=== PATIENT | female | born 1980 | race Native Hawaiian/Other Pacific Islander ===

== ENCOUNTER 2020-07-20 11:58 | Outpatient (CLI) | payer OTHER ==
[~2020-07-20 11:58] MED LIST: ADDERALL15 MG PO; CELEBREX200 MG PO; CLON0.1T16 PO; DULO30CA PO; FOLI1TAB26 PO; METHO2.5 PO; NEURONTIN 100M100 MG PO; PARO20TA3 PO; PROMETHAZINE12.5 M2 PO
== END 2020-07-20 23:16 | disposition home or self-care (01) ==
LOC: US 11:58
DX: R10.9 Unspecified abdominal pain (principal)

== ENCOUNTER 2020-07-26 08:10 | Outpatient (CLI) | payer OTHER | END 2020-07-26 21:30 | disposition home or self-care (01) | LOC: NM 08:10 | DX: R10.9 Unspecified abdominal pain (principal) | CPT/HCPCS: A9537 ==

== ENCOUNTER 2020-11-28 11:04 | Outpatient (CLI) | payer OTHER ==
[2020-11-28 13:28] LABS: PLATELET COUNT 190 K/uL (152-353)
[2020-11-28 14:10] LABS: POTASSIUM 3.7 mmol/L (3.6-5.2); SODIUM 138 mmol/L (136-145)
== END 2020-11-28 19:19 | disposition home or self-care (01) ==
LOC: LABW 11:04
PROVIDERS: ATTEND Family Medicine
DX: R00.2 Palpitations (principal); R06.09 Other forms of dyspnea
CPT/HCPCS: 36415; 80053; 80061; 82306; 82550; 82607; 82670; 83036; 84403; 84436; 84443; 84480; 84484; 85027; 85379; 85385; 86140; 86376; 93225

== ENCOUNTER 2020-11-29 12:10 | Outpatient (CLI) | payer OTHER | END 2020-11-29 19:56 | disposition home or self-care (01) | LOC: RESP 12:10 | PROVIDERS: ATTEND Family Medicine | DX: R00.2 Palpitations (principal); R06.00 Dyspnea, unspecified ==

== ENCOUNTER 2020-12-11 11:35 | Observation (INO) | payer OTHER ==
[~2020-12-11] VITALS: Ht 154.9 cm; Wt 54.9 kg
[2020-12-11 12:12] LABS: PLATELET COUNT 212 K/uL (152-353)
[2020-12-11 12:30] LABS: POTASSIUM 3.8 mmol/L (3.6-5.2)
[2020-12-11 13:39] VITALS: BP 113/61; TEMP 98.5; Ht 154.9 cm; Wt 54.9 kg
[2020-12-11] MEDS ORDERED: METO50TA27 PO (13:58)
[2020-12-11] MEDS ORDERED: LIPITOR10 MG PO (13:59)
[2020-12-11] MEDS ORDERED: ADDERALL30 MG PO (14:54)
[2020-12-11 16:00] VITALS: BP 93/57; TEMP 98.5
[2020-12-11 20:06] VITALS: BP 112/69; TEMP 98.5
[2020-12-11 23:58] VITALS: BP 93/49; TEMP 97.6
[2020-12-12 04:12] VITALS: BP 90/57; TEMP 98.2
[2020-12-12 05:00] LABS: PLATELET COUNT 167 K/uL (152-353)
[2020-12-12 08:00] VITALS: BP 115/50; TEMP 98.5
[2020-12-12 12:00] VITALS: BP 102/50; TEMP 98.5
[2020-12-12 16:00] VITALS: BP 98/69; TEMP 98.5
[2020-12-12 19:57] VITALS: BP 111/76; TEMP 98.2
[2020-12-12 23:52] VITALS: BP 90/55; TEMP 98.2
[2020-12-13] VITALS (11 sets, daily range): BP systolic 74–132; BP diastolic 37–83; TEMP 97.5–98.8
[2020-12-13 05:19] LABS: PLATELET COUNT 159 K/uL (152-353)
[2020-12-13 05:36] LABS: POTASSIUM 3.7 mmol/L (3.6-5.2)
== END 2020-12-13 18:40 | disposition home or self-care (01) ==
LOC: MED/SURG 11:35
PROVIDERS: ADMIT Family Medicine; ATTEND Family Medicine
PROC: 0FT44ZZ Resection of Gallbladder, Percutaneous Endoscopic Approach (ICD-10-PCS; principal; 2020-12-13)
DX: K81.1 Chronic cholecystitis (principal); E46 Unspecified protein-calorie malnutrition; F17.200 Nicotine dependence, unspecified, uncomplicated; R10.9 Unspecified abdominal pain
CPT/HCPCS: 36415; 80053; 81000; 82150; 83605; 83690; 83735; 84100; 85027; 86140; 87040; 87635; 96365; 96366; 96367; 96375; 99220; G0378; G0379; J0132; J0171; J1100; J1170; J1885; J2175; J2405; J2543; J2550; J2704; J2710; J3490; J7120; U0003

== ENCOUNTER 2021-03-01 13:34 | Outpatient (CLI) | payer OTHER ==
[~2021-03-01 13:34] MED LIST changes: +ADDERALL30 MG PO; +LIPITOR10 MG PO; +METO50TA27 PO
== END 2021-03-01 22:50 | disposition home or self-care (01) ==
LOC: MAMMO 13:34
PROVIDERS: ATTEND Family Medicine
DX: N64.52 Nipple discharge (principal); N64.4 Mastodynia
CPT/HCPCS: G0279

== ENCOUNTER 2021-07-01 14:52 | Emergency (ER) | payer OTHER ==
[~2021-07-01] VITALS: Ht 154.9 cm; Wt 54.9 kg
[2021-07-01 15:00] VITALS: TEMP 98.8
[2021-07-01 15:43] VITALS: BP 103/73
== END 2021-07-01 15:45 | disposition home or self-care (01) ==
LOC: ED 14:52
DX: S93.491A Sprain of other ligament of right ankle, initial encounter (principal); W20.8XXA Other cause of strike by thrown, projected or falling object, initial encounter; Y92.239 Unspecified place in hospital as the place of occurrence of the external cause
CPT/HCPCS: 99282

== ENCOUNTER 2021-11-13 11:57 | Observation (INO) | payer OTHER ==
[~2021-11-13] VITALS: Ht 154.9 cm; Wt 55.3 kg
[2021-11-13 12:10] VITALS: BP 84/60; TEMP 98.1; Ht 154.9 cm; Wt 55.3 kg
[2021-11-13 12:57] LABS: PLATELET COUNT 162 K/uL (152-353)
[2021-11-13 13:15] LABS: POTASSIUM 3.6 mmol/L (3.6-5.2); SODIUM 140 mmol/L (136-145)
[2021-11-13 13:23] LABS: PARTIAL THROMBOPLASTIN TIME 26.8 SECONDS (24.5-33.6)
[2021-11-13] MEDS ORDERED: ADDERALL30 MG PO (14:54)
[2021-11-13 20:04] VITALS: BP 101/56; TEMP 98.5
[2021-11-14 00:08] VITALS: BP 94/58; TEMP 98.5
[2021-11-14 04:00] VITALS: BP 96/54; TEMP 98.6
== END 2021-11-14 07:00 | disposition home or self-care (01) ==
LOC: MED/SURG 11:57
PROVIDERS: ADMIT Family Medicine; ATTEND Family Medicine
DX: R07.89 Other chest pain (principal); R06.00 Dyspnea, unspecified; Z86.16 Personal history of COVID-19; R94.31 Abnormal electrocardiogram [ECG] [EKG]
CPT/HCPCS: 36415; 80053; 82550; 84484; 85027; 85379; 85610; 85730; 86140; 87635; 93005; 96360; 96361; 96372; 99220; G0378; G0379; J1650; U0003

== ENCOUNTER 2021-11-23 08:12 | Outpatient (CLI) | payer OTHER ==
[~2021-11-23] VITALS: Ht 30.5 cm; Wt 0.5 kg
== END 2021-11-23 19:58 | disposition home or self-care (01) ==
LOC: NM 08:12
PROVIDERS: ATTEND Family Medicine
DX: R07.9 Chest pain, unspecified (principal); I49.9 Cardiac arrhythmia, unspecified
CPT/HCPCS: A9500

== ENCOUNTER 2021-12-15 18:01 | Outpatient (CLI) | payer OTHER ==
[2021-12-15 19:10] LABS: PLATELET COUNT 182 K/uL (152-353)
== END 2021-12-15 19:43 | disposition home or self-care (01) ==
LOC: LABW 18:01
PROVIDERS: ATTEND Internal Medicine
DX: R07.9 Chest pain, unspecified (principal)
CPT/HCPCS: 82550; 84436; 84439; 84443; 84484; 85027; 93005; 93225

== ENCOUNTER 2021-12-17 12:19 | Outpatient (CLI) | payer OTHER | END 2021-12-17 18:59 | disposition home or self-care (01) | LOC: RESP 12:19 | PROVIDERS: ATTEND Internal Medicine | DX: I49.9 Cardiac arrhythmia, unspecified (principal); R07.9 Chest pain, unspecified ==

== ENCOUNTER 2022-03-04 09:47 | Outpatient (CLI) | payer OTHER ==
[2022-03-04 11:08] LABS: PLATELET COUNT 172 K/uL (152-353)
[2022-03-04 11:27] LABS: POTASSIUM 3.8 mmol/L (3.6-5.2)
== END 2022-03-04 18:59 | disposition home or self-care (01) ==
LOC: LABW 09:47
PROVIDERS: ATTEND Nurse Practitioner Family
DX: R53.83 Other fatigue (principal)
CPT/HCPCS: 36415; 80053; 82670; 83001; 83519; 84402; 84403; 84436; 84443; 84481; 85027; 85652; 86038; 86140; 86308; 86376; 86430; 86644; 86664; 86665

== ENCOUNTER 2022-07-03 14:45 | Outpatient (CLI) | payer OTHER ==
[2022-07-03 14:56] LABS: PLATELET COUNT 198 K/uL (152-353)
[2022-07-03 15:14] LABS: POTASSIUM 3.9 mmol/L (3.6-5.2)
== END 2022-07-03 19:36 | disposition home or self-care (01) ==
LOC: LABW 14:45
PROVIDERS: ATTEND Nurse Practitioner Family
DX: H55.09 Other forms of nystagmus (principal)
CPT/HCPCS: 36415; 80053; 83735; 85027

== ENCOUNTER 2022-10-17 10:16 | Outpatient (CLI) | payer OTHER | END 2022-10-17 19:44 | disposition home or self-care (01) | LOC: MAMMO 10:16 | PROVIDERS: ATTEND Family Medicine | DX: N64.52 Nipple discharge (principal) | CPT/HCPCS: G0279 ==

== ENCOUNTER 2023-01-22 11:40 | Outpatient (CLI) | payer OTHER ==
[2023-01-22 12:06] LABS: PLATELET COUNT 191 K/uL (152-353)
[2023-01-22 12:26] LABS: POTASSIUM 3.8 mmol/L (3.6-5.2)
== END 2023-01-22 19:11 | disposition home or self-care (01) ==
LOC: LAB 11:40
PROVIDERS: ATTEND Nurse Practitioner Family
DX: L40.0 Psoriasis vulgaris (principal); F90.0 Attention-deficit hyperactivity disorder, predominantly inattentive type; Z79.899 Other long term (current) drug therapy; R68.89 Other general symptoms and signs; R53.83 Other fatigue; R53.81 Other malaise
CPT/HCPCS: 80053; 80061; 84439; 84443; 85027

== ENCOUNTER 2023-06-12 14:00 | Outpatient (CLI) | payer OTHER ==
[2023-06-12 14:24] LABS: PLATELET COUNT 176 K/uL (152-353)
[2023-06-12 14:38] LABS: POTASSIUM 4.1 mmol/L (3.6-5.2)
== END 2023-06-12 19:39 | disposition home or self-care (01) ==
LOC: LAB 14:00
PROVIDERS: ATTEND Nurse Practitioner Family
DX: M32.9 Systemic lupus erythematosus, unspecified (principal); F90.0 Attention-deficit hyperactivity disorder, predominantly inattentive type; Z79.899 Other long term (current) drug therapy; R53.83 Other fatigue; R53.81 Other malaise; L40.0 Psoriasis vulgaris; R63.5 Abnormal weight gain
CPT/HCPCS: 80053; 80061; 82306; 82607; 82672; 83001; 83036; 84403; 84439; 84443; 85027